=== PATIENT | female | born 1990 | race Caucasian/White ===

== ENCOUNTER 2018-05-12 18:03 | Inpatient (IN) | payer OTHER ==
[~2018-05-12] VITALS: Ht 167.6 cm; Wt 60.9 kg
--- NOTE | ~2018-05-12 | EKG ---
[place], [place] ELECTROCARDIOGRAM REPORT NAME: REAL WILCOX UNIT #: [id number] ROOM: 428 DOCTOR: VINCENT DRAFT REPORT BIRTHDATE: [birth year] [facility] Test Date: 2018-05-12 Test Time: 21:17:09 Pat Name: REAL WILCOX Department: Room: [facility] 1 Gender: F Appraiser Auditor: Brandi Su : 1990 Requested By: SUYAPA CORONA Order Number: [id number] Reading MD: Karan Cunningham MD Measurements Intervals Rogers Rate: 92 P: 62 NH: 117 QRS: 76 QRSD: 90 T: 45 QT: 367 QTc: 455 Interpretive Statements Sinus rhythm Borderline short NH interval Baseline wander in lead(s) V6 Compared to ECG 04/08/2018 19:09:59 No significant changes Electronically Signed On 05-13-2018 15:34:25 PDT by Karan Cunningham MD CM:EKGRPT:ELECTROCARDIOGRAM REPORT [id number] SUYAPA BAH DRAFT REPORT SUYAPA CORONA DO
[~2018-05-12 18:03] MED LIST: 'CLONIDINE0.1 MG PO; BACLOFEN5 MG PO; CITALOPRAM10 MG PO; HYDROXYZINE PAM25 M1 PO; MIRTAZAPINE15 M2 PO
[2018-05-12 18:05] VITALS: BP 135/70
[2018-05-12 18:37] LABS: BASO % 0.4 % (0.0-1.0); EOS # 0.1 10*3/uL (0.0-0.4); EOS % 1.9 % (1.0-4.0); HEMATOCRIT 37.6 % (37.0-47.0); HEMOGLOBIN 12.9 g/dl (12.0-16.0); LYMPH # 2.3 10*3/uL (1.3-4.4); LYMPH % 44.2 % (27.0-41.0); MEAN CORPUSCULAR HGB 29.9 pg (27.0-31.0); MEAN CORPUSCULAR HGB CONC 34.3 g/dl (33.0-37.0); MEAN PLATELET VOLUME 10.8 fl (9.6-12.3); MONO # 0.6 10*3/uL (0.1-1.0); MONO % 10.8 % (3.0-9.0); NEUT # 2.3 10*3/uL (2.3-7.9); NEUT % 42.5 % (47.0-73.0); PLATELET COUNT AUTOMATED 172 10*3/uL (130-400); RED BLOOD COUNT 4.32 10*6/uL (4.10-5.10); RED CELL DISTRI WIDTH 13.3 % (0-14.5); WHITE BLOOD COUNT 5.3 10*3/uL (4.8-10.8)
[2018-05-12 18:48] LABS: BILIRUBIN NEGATIVE (NEGATIVE); BLOOD NEGATIVE (NEGATIVE); CLARITY CLOUDY (CLEAR); COLOR YELLOW (YELLOW); GLUCOSE NEGATIVE (NEGATIVE); KETONE NEGATIVE (NEGATIVE); LEUKO ESTERASE NEGATIVE (NEGATIVE); NITRITE NEGATIVE (NEGATIVE); SPECIFIC GRAVITY 1.015 (1.005-1.030); UROBILINOGEN 0.2 E.U./dl (0.2-1.0)
[2018-05-12 18:55] LABS: BACTERIA 3+; EPITHELIAL CELLS 0-2; RBC 0-2 rbc/hpf (0-2)
[2018-05-12 18:56] LABS: URINE AMPHETAMINES > 1000 (1000ng/ml); URINE BARBITURATES < 200 (200ng/ml); URINE BENZODIAZEPINES < 200 (200ng/ml); URINE CANNABINOIDS (THC) > 50 (50ng/ml); URINE COCAINE > 300 (300ng/ml); URINE METHADONE < 300 (300ng/ml); URINE OPIATES > 300 (300ng/ml)
[2018-05-12 19:08] LABS: ALBUMIN 3.9 gm/dl (3.1-4.5); ALKALINE PHOSPHATASE 57 U/L (45-117); BUN 5 mg/dl (7-24); CHLORIDE 107 mmol/L (98-107); CREATININE 0.73 mg/dL (0.55-1.02); POTASSIUM 3.7 mmol/L (3.5-5.1); SGOT/AST 56 IU/L (3-35); SGPT/ALT 76 U/L (12-78); SODIUM 140 mmol/L (136-145)
--- NOTE | 2018-05-12 19:09 | NUR ---
REPORT GIVEN TO PAUL LOMAX.
[2018-05-12 19:10] LABS: URINE PHENCYCLIDINE < 25 (25ng/ml)
[2018-05-12 19:15] LABS: ACETAMINOPHEN (TYLENOL) < 5.0 ug/ml (10-30); BETA-HCG, QUANT < 1.0 mIU/mL (1-3); ETHYL ALCOHOL < 3.0 mg/dl (<3)
[2018-05-12 19:55] VITALS: BP 121/66
--- NOTE | 2018-05-12 19:55 | NUR ---
Time: 1952 A 28 year old FEMALE admitted to under services of BALTAZAR QUINN DO, Pt. arrived via wheel chair from ER. Chief complaint: PATIENT HERE FOR [facility]. GARY REYNOLDS
[2018-05-12 20:00] VITALS: BP 121/66
--- NOTE | 2018-05-12 20:30 | NUR ---
MED LIST REVIEWED WITH PATIENT.
[2018-05-13] VITALS: BP 130/81
--- NOTE | 2018-05-13 03:35 | NUR ---
PATIENT MEDICATED WITH ROBAXIN AND VISTARIL PER PRN ORDER AND PATIENT REQUEST FOR S/S OF WITHDRAWAL. SEE EMAR. REINFORCED USE OF CALL LIGHT.
--- NOTE | 2018-05-13 03:45 | NUR ---
NOTIFIED OF CRITICAL LAB RESULT-- ANAEROBIC BLOOD CULTURE GRAM POSITIVE IN PRS AND CHAINS.
[2018-05-13 08:00] VITALS: BP 130/82
--- NOTE | 2018-05-13 09:29 | NUR ---
PATIENT MEETS [facility]. PATIENT WANTS TO GO TO [facility] IN [place] FOR HER AFTERCARE PLAN. [place] STAFF WILL FOLLOW UP WITH PATIENT. SAVANNA GAFFNEY B.A. SOAP PRESS FEEDER
--- NOTE | 2018-05-13 11:51 | NUR ---
REFUSES TO TAKE NOON DOSE OF SUBUTEX. REMINDED THAT NEXT DOSE OF SUBUTEX WILL BE GIVEN AT 8PM. MEDICATED WITH VISTARIL ORDERED PRN FOR ANXIETY.
[2018-05-13 12:00] VITALS: BP 124/74
--- NOTE | 2018-05-13 13:28 | NUR ---
PATIENT'S AFTERCARE PLAN HAS CHANGED. PATIENT WILL BE FOLLOWING UP WITH [facility] IN [place] FOR INTENSIVE OUT PATIENT TREATMENT AND THEN WILL BE ALSO FOLLOWING UP WITH [facility] IN [place] FOR THE VIVITROL SHOT. [place] STAFF REVIEWED ALL OF PATIENT'S APPOINTMENT DATES AND TIMES. PATIENT AGREES AND UNDERSTANDS HER AFTERCARE PLAN. PATIENT WILL NEED TO CONTACT HER INSURANCE FOR TRANSPORTATION UPON DISCHARGE. [facility] PHONE NUMBER IS [phone]. HOSPITAL STAFF WILL BE ABLE TO VERIFY THAT PATIENT IS BEING DISCHARGE FROM HOSPITAL AND NEEDS TRANSPORTATION HOME. SAVANNA GAFFNEY B.A. ARSON INVESTIGATOR
[2018-05-13 16:00] VITALS: BP 122/71
[2018-05-13 20:00] VITALS: BP 106/73
[2018-05-14] VITALS: BP 139/82
--- NOTE | 2018-05-14 07:05 | NUR ---
REPORT OBTAINED FROM SHYANNE. PATIENT IS RESTING COMFORTABLY IN BED, EYES CLOSED. NO DISTRESS NOTED, RESP ARE ERND ON ROOM AIR. BED IS LOCKED IN LOWEST POSITION. CALL LIGHT LEFT WITHIN REACH.
[2018-05-14 08:00] VITALS: BP 136/79
--- NOTE | 2018-05-14 10:03 | NUR ---
PATIENT MEDICATED WITH PRN AVAILBLE, SEE EMAR, FOR C/O SYMPTOMS OF WITHDRAWAL. WILL MONITOR
--- NOTE | 2018-05-14 11:03 | NUR ---
PRNS APPEAR TO BE EFFECTIVE FOR WITHDRAWAL SYMPTOMS. PATIENT IN BED, EYES CLOSED. NO DISTRESS NOTED
[2018-05-14 16:00] VITALS: BP 132/75
[2018-05-14 20:00] VITALS: BP 137/69
--- NOTE | 2018-05-14 21:30 | NUR ---
PT GIVEN VISTARIL FOR C/O ANXIETY. WILL MONITOR FOR EFFECTIVENESS. CALL LIGHT IN REACH.
--- NOTE | 2018-05-14 22:30 | NUR ---
VISTARIL EFFECTIVE PER PT.
[2018-05-15] VITALS: BP 129/82
--- NOTE | 2018-05-15 00:50 | NUR ---
PT CAUGHT SMOKING OUTSIDE BY NRSN CLEAT BLANKER VINNIE. NOTIFIED. SAID TO WITHOLD ALL MEDICATIONS FROM PT THROUGH THE NIGHT AND WILL BE DISCHARGED IN THE MORNING.
[2018-05-15 08:00] VITALS: BP 119/73
--- NOTE | 2018-05-15 11:28 | NUR ---
Discharge instructions reviewed with patient/family. Patient receptive and verbalizes understanding. Follow-up care TO BE arranged BY PATIENT. Written instructions given to patient. TRANSPORT SET-UP BY PATIENT. SANDHYA RODRIGEZ
== END 2018-05-15 11:28 | disposition home or self-care (01) | DRG 897 ==
LOC: ED 18:03 → 4E 18:54 → EDHOLD 18:54 → 4E 19:47
PROVIDERS: Nurse Practitioner Family; ADMIT Internal Medicine
DX: F11.23 Opioid dependence with withdrawal (principal); B15.9 Hepatitis A without hepatic coma; R61 Generalized hyperhidrosis; F41.9 Anxiety disorder, unspecified; R00.0 Tachycardia, unspecified; R74.0 Nonspecific elevation of levels of transaminase and lactic acid dehydrogenase [LDH]; F14.10 Cocaine abuse, uncomplicated; F15.10 Other stimulant abuse, uncomplicated; F12.10 Cannabis abuse, uncomplicated; B19.20 Unspecified viral hepatitis C without hepatic coma; F17.200 Nicotine dependence, unspecified, uncomplicated; K76.0 Fatty (change of) liver, not elsewhere classified; Z71.6 Tobacco abuse counseling; Z79.899 Other long term (current) drug therapy

== ENCOUNTER 2018-10-05 15:52 | Inpatient (IN) | payer OTHER ==
[~2018-10-05] VITALS: Ht 167.6 cm; Wt 63.5 kg
[2018-10-05 15:54] VITALS: BP 110/71
--- NOTE | 2018-10-05 16:47 | NUR ---
PATIENT MEETS [facility]. PATIENT WANTS TO FOLLOW UP WITH A [facility] IN [place]. PATIENT REFUSED TO SIGN RELEASE OF INFORMATION TO FACILITY. [place] STAFF WILL FOLLOW UP WITH PATIENT. SAVANNA GAFFNEY B.A. RIGHT OF WAY MAN
[2018-10-05 16:50] VITALS: BP 109/74
--- NOTE | 2018-10-05 16:54 | NUR ---
[place] 28 year old FEMALE admitted to room # 427 for stabilization. Reports an addiction to IV HEROIN last used 14 hours prior to admission. Compliant with admission procedure. Patient denies any anxiety, but is unable to sit still, taps toes to floor continuously, looks about room, unable to focus eyes on nurse during interview. See assessment forms for additional information about patient status.
[2018-10-05] MEDS ORDERED: REMERON SOLTAB45 MG PO (17:06)
[2018-10-05 17:16] LABS: BILIRUBIN NEGATIVE (NEGATIVE); BLOOD NEGATIVE (NEGATIVE); CLARITY SL CLOUDY (CLEAR); COLOR YELLOW (YELLOW); GLUCOSE NEGATIVE (NEGATIVE); KETONE TRACE (NEGATIVE); LEUKO ESTERASE NEGATIVE (NEGATIVE); NITRITE NEGATIVE (NEGATIVE); SPECIFIC GRAVITY 1.025 (1.005-1.030); UROBILINOGEN 0.2 E.U./dl (0.2-1.0)
[2018-10-05 17:28] LABS: BACTERIA 3+; MUCOUS TRACE; RBC 0-2 rbc/hpf (0-2)
[2018-10-05 17:29] LABS: BASO % 0.3 % (0.0-1.0); EOS # 0.1 10*3/uL (0.0-0.4); EOS % 1.9 % (1.0-4.0); HEMATOCRIT 35.9 % (37.0-47.0); HEMOGLOBIN 11.9 g/dl (12.0-16.0); LYMPH # 2.1 10*3/uL (1.3-4.4); LYMPH % 36.4 % (27.0-41.0); MEAN CELL VOLUME 91.1 fl (81.0-99.0); MEAN CORPUSCULAR HGB 30.2 pg (27.0-31.0); MEAN CORPUSCULAR HGB CONC 33.1 g/dl (33.0-37.0); MEAN PLATELET VOLUME 10.9 fl (9.6-12.3); MONO # 0.5 10*3/uL (0.1-1.0); MONO % 8.9 % (3.0-9.0); NEUT % 52.3 % (47.0-73.0); PLATELET COUNT AUTOMATED 172 10*3/uL (130-400); RED BLOOD COUNT 3.94 10*6/uL (4.10-5.10); RED CELL DISTRI WIDTH 12.8 % (0-14.5); WHITE BLOOD COUNT 5.7 10*3/uL (4.8-10.8)
[2018-10-05 17:32] LABS: URINE AMPHETAMINES < 1000 (1000ng/ml); URINE BARBITURATES < 200 (200ng/ml); URINE BENZODIAZEPINES < 200 (200ng/ml); URINE CANNABINOIDS (THC) < 50 (50ng/ml); URINE COCAINE < 300 (300ng/ml); URINE METHADONE < 300 (300ng/ml); URINE OPIATES < 300 (300ng/ml); URINE PHENCYCLIDINE < 25 (25ng/ml)
[2018-10-05 17:36] LABS: INTERNATIONAL NORM RATIO 1.1 (2.0-3.5)
[2018-10-05 17:43] LABS: ALBUMIN 3.9 gm/dl (3.1-4.5); ALKALINE PHOSPHATASE 39 U/L (45-117); BUN 7 mg/dl (7-24); CHLORIDE 105 mmol/L (98-107); ETHYL ALCOHOL < 3.0 mg/dl (<3); POTASSIUM 3.6 mmol/L (3.5-5.1); SGOT/AST 26 IU/L (3-35); SGPT/ALT 35 U/L (12-78); SODIUM 137 mmol/L (136-145); TOTAL PROTEIN 7.6 gm/dL (6.4-8.2)
[2018-10-05 17:48] LABS: BETA-HCG, QUANT < 1.0 mIU/mL (1-3)
--- NOTE | 2018-10-05 18:00 | NUR ---
PATIENT REFUSED 1800 SUBUTEX DOSE. PT HERE BEFORE FOR [facility] PROGRAM AND DID NOT TAKE ANY SUBUTEX. PT ONLY REQUESTS PRN MEDICATIONS. PRN BENTYL, ROBAXIN, REQUIP, MOTRIN AND VISTARIL GIVEN AT THIS TIME. WILL MONITOR EFFECTIVENESS.
--- NOTE | 2018-10-05 19:24 | NUR ---
REPORT RECIEVED FROM DAMI NOBLE. PT IS AWAKE AND SITTING UP IN BED AT THIS TIME. THERE ARE NO OVERT SIGNS OF DISTRESS. PT DENIES ANY WITHDRAWAL SYMPTOMS. CALL LIGHT IS WITHIN REACH, WILL CONTINUE TO MONITOR.
--- NOTE | 2018-10-05 19:24 | NUR ---
24 HOUR CHART CHECK COMPLETED
[2018-10-05 20:00] VITALS: BP 99/52
[2018-10-06] VITALS: BP 100/53
[2018-10-06 04:00] VITALS: BP 93/49
[2018-10-06 08:00] VITALS: BP 99/55
--- NOTE | 2018-10-06 10:32 | NUR ---
IN TO SEE PT, ASSESSMENT COMPLETE. NO NEW ABNORMALITIES NOTED. PT DENIES NEEDING ANYTHING. PT SLEEPING AT THIS TIME. WILL CONTINUE TO MONITOR. CALL LIGHT IN REACH.
[2018-10-06 12:00] VITALS: BP 110/56
--- NOTE | 2018-10-06 12:23 | NUR ---
PT GIVEN ROBAXIN AND REQUIP FOR C/O RESTLESS LEGS AND BODY ACHES. WILL MONITOR FOR EFFECTIVENESS. NO OTHER COMPLAINTS AT THIS TIME. PT ALERT ORIENTED AND PLEASANT MOOD. PT SITTING UP IN BED, CALL LIGHT IN REACH.
--- NOTE | 2018-10-06 13:00 | NUR ---
PATIENT IS GOING TO CONTINUE TO FOLLOW UP WITH A [facility] IN [place]. PATIENT REPORTS THAT HER AFTERCARE IS ALREADY SET UP UPON DISCHARGE. PATIENT WILL POSSIBLY NEED TRANSPORTATION SET UP THROUGH HER INSURANCE. SAVANNA GAFFNEY B.A. COVERED BUTTON MAKER
[2018-10-06 16:00] VITALS: BP 144/43
--- NOTE | 2018-10-06 19:44 | NUR ---
24 HOUR CHART CHECK COMPLETED AT THIS TIME
[2018-10-06 20:00] VITALS: BP 104/67
[2018-10-07] VITALS: BP 111/58
[2018-10-07 08:00] VITALS: BP 95/55
[2018-10-07 12:00] VITALS: BP 99/59
--- NOTE | 2018-10-07 12:45 | NUR ---
PT LYING IN BED, RESPIRATIONS EASY AND UNLABORED. NO S/S OF DISTRESS. PT DENIES NEEDING ANYTHING AT THIS TIME. WILL CONTINUE TO MONITOR. CALL LIGHT IN REACH.
[2018-10-07 16:00] VITALS: BP 99/59
--- NOTE | 2018-10-07 16:00 | NUR ---
PT LYING IN BED, RESPIRATIONS EASY AND UNLABORED. NO S/S OF DISTRESS NOTED. PT DENIES ANY WITHDRAWAL S/S AND DENIES NEEDING ANYTHING AT THIS TIME. WILL CONTINUE TO MONITOR. CALL LIGHT IN REACH.
[2018-10-07 20:00] VITALS: BP 101/71
[2018-10-08] VITALS: BP 116/68
--- NOTE | 2018-10-08 07:43 | NUR ---
TOOK OVER CARE OF PT AT THIS TIME. PT RESTING IN BED WITH EYES CLOSED, RESPIRATIONS EASY AND UNLABORED ON ROOM AIR. NO S/S OF DISTRESS. BED IN LOWEST POSITION, WHEELS LOCKED. WHITE BOARD UPDATED. CALL LIGHT IN REACH.
[2018-10-08 08:00] VITALS: BP 106/67
--- NOTE | 2018-10-08 09:00 | NUR ---
PT REFUSES AM SUBUTEX AND LOVENOX. PT STATES THAT SHE HAS SCHEDULED HER TRANSPORTATION VIA HER INSURANCE TO PICK HER UP AT 10 AM. PHYSICIAN NOTIFIED.
--- NOTE | 2018-10-08 09:49 | NUR ---
HOME MEDICATION FROM PHARMACY RETURNED TO PATIENT. CIGARETTES AND LIBRARIAN HELPER FROM [place] RETURNED TO PATIENT WELL. ALL OTHER BELONGINGS WITH PATIENT, PT STATES THAT SHE DOES HAVE EVERYTHING THAT SHE CAME IN WITH. ALL APPROPRIATE PAPERWORK SIGNED. PATIENT STATES THAT HER TRANSPORTATION IS HERE THAT SHE ARRANGED WITH HER INSURANCE COMPANY. PT STABLE, WALKS OFF OF FLOOR AT THIS TIME.
--- NOTE | 2018-10-08 09:51 | NUR ---
Discharge instructions reviewed with patient/family. Patient receptive and verbalizes understanding. Follow-up care arranged. Written instructions given to patient/family. CYNTHIA BAUTISTA
== END 2018-10-08 10:27 | disposition home or self-care (01) | DRG 897 ==
LOC: ED 15:52 → EDHOLD 16:18 → 4E 16:18
PROVIDERS: Internal Medicine; ADMIT Internal Medicine
DX: F11.23 Opioid dependence with withdrawal (principal); B19.20 Unspecified viral hepatitis C without hepatic coma; F41.9 Anxiety disorder, unspecified; F17.210 Nicotine dependence, cigarettes, uncomplicated; D64.9 Anemia, unspecified; G47.00 Insomnia, unspecified; Z71.6 Tobacco abuse counseling; Z82.49 Family history of ischemic heart disease and other diseases of the circulatory system

== ENCOUNTER 2018-12-08 15:25 | Inpatient (IN) | payer OTHER ==
[~2018-12-08] VITALS: Ht 167.6 cm; Wt 67.6 kg
[~2018-12-08 15:25] MED LIST changes: +REMERON SOLTAB45 MG PO
[2018-12-08 15:26] VITALS: BP 113/70
[2018-12-08 16:17] LABS: BASO % 0.6 % (0.0-1.0); EOS # 0.1 10*3/uL (0.0-0.4); EOS % 2.4 % (1.0-4.0); HEMATOCRIT 34.8 % (37.0-47.0); HEMOGLOBIN 11.3 g/dl (12.0-16.0); LYMPH # 2.1 10*3/uL (1.3-4.4); LYMPH % 38.3 % (27.0-41.0); MEAN CELL VOLUME 90.9 fl (81.0-99.0); MEAN CORPUSCULAR HGB 29.5 pg (27.0-31.0); MEAN CORPUSCULAR HGB CONC 32.5 g/dl (33.0-37.0); MEAN PLATELET VOLUME 10.8 fl (9.6-12.3); MONO # 0.6 10*3/uL (0.1-1.0); MONO % 10.5 % (3.0-9.0); NEUT # 2.6 10*3/uL (2.3-7.9); PLATELET COUNT AUTOMATED 162 10*3/uL (130-400); RED BLOOD COUNT 3.83 10*6/uL (4.10-5.10); RED CELL DISTRI WIDTH 12.5 % (0-14.5); WHITE BLOOD COUNT 5.4 10*3/uL (4.8-10.8)
[2018-12-08 16:43] LABS: ALBUMIN 3.2 gm/dl (3.1-4.5); ALKALINE PHOSPHATASE 36 U/L (45-117); BUN 5 mg/dl (7-24); CHLORIDE 106 mmol/L (98-107); CREATININE 0.66 mg/dL (0.55-1.02); POTASSIUM 4.2 mmol/L (3.5-5.1); SGOT/AST 26 IU/L (3-35); SGPT/ALT 31 U/L (12-78); SODIUM 139 mmol/L (136-145); TOTAL PROTEIN 6.5 gm/dL (6.4-8.2)
[2018-12-08 16:53] LABS: ACETAMINOPHEN (TYLENOL) < 5.0 ug/ml (10-30); BETA-HCG, QUANT < 1.0 mIU/mL (1-3); ETHYL ALCOHOL < 3.0 mg/dl (<3)
--- NOTE | 2018-12-08 17:25 | NUR ---
28 year old FEMALE admitted to room # 416-2 for stabilization. Reports an addiction to HEROIN last used 16 hours prior to admission. Compliant with admission procedure. Patient C/O ANXIETY, AND CHILLS. See assessment forms for additional information about patient status. SKIN INTACT WITH NO WOUNDS
[2018-12-08 17:35] VITALS: BP 99/68
--- NOTE | 2018-12-08 17:41 | NUR ---
PT DECLINES FLU SHOT
[2018-12-08 17:45] LABS: BILIRUBIN NEGATIVE (NEGATIVE); BLOOD NEGATIVE (NEGATIVE); COLOR YELLOW (YELLOW); GLUCOSE NEGATIVE (NEGATIVE); KETONE NEGATIVE (NEGATIVE); LEUKO ESTERASE NEGATIVE (NEGATIVE); NITRITE NEGATIVE (NEGATIVE); SPECIFIC GRAVITY 1.015 (1.005-1.030); UROBILINOGEN 0.2 E.U./dl (0.2-1.0)
[2018-12-08 17:53] LABS: URINE AMPHETAMINES < 1000 (1000ng/ml); URINE BARBITURATES < 200 (200ng/ml); URINE BENZODIAZEPINES < 200 (200ng/ml); URINE CANNABINOIDS (THC) < 50 (50ng/ml); URINE COCAINE < 300 (300ng/ml); URINE METHADONE < 300 (300ng/ml); URINE OPIATES < 300 (300ng/ml)
[2018-12-08 17:56] LABS: URINE PHENCYCLIDINE < 25 (25ng/ml)
--- NOTE | 2018-12-08 18:00 | NUR ---
PT STATES SHE DOES NOT WANT TO TAKE SUBUTEX DURING THIS ADMISSION. DR DUBON NOTIFIED
[2018-12-08 18:07] LABS: CLARITY SL CLOUDY (CLEAR); EPITHELIAL CELLS 16-20
[2018-12-08 20:00] VITALS: BP 112/69
--- NOTE | 2018-12-08 20:12 | NUR ---
PT REQUESTING MOTRIN. PT STATES "I HAD MY TOOTH PULLED YESTERDAY AND WOULD LIKE SOME MOTRIN." PRN MOTRIN GIVEN ORDERED. CALL LIGHT WITHIN REACH.
--- NOTE | 2018-12-08 20:56 | NUR ---
PT STATES SHE DOES NOT WANT TO TAKE SUBUTEX. INFORMED.
--- NOTE | 2018-12-08 21:15 | NUR ---
PT STATES MOTRIN WAS EFFECTIVE. NO COMPLAINTS AT THIS TIME. CALL LIGHT WITHIN REACH.
[2018-12-09] VITALS: BP 112/59
--- NOTE | 2018-12-09 04:10 | NUR ---
Patient sleeping. Respirations relaxed and easy. Siderails up . [place] on. No signs of distress noted. Call light within reach. AARTI CARLISLE
--- NOTE | 2018-12-09 07:30 | NUR ---
PT SLEEPING. REPOERT RECEIVED FROM AARTI LOMAX. BED LOW. CALL JHA IN REACH
[2018-12-09 08:00] VITALS: BP 100/52
--- NOTE | 2018-12-09 09:06 | NUR ---
PATIENT MEETS [facility]. PATIENT IS GOING TO FOLLOW UP WITH [facility] FOR HER AFTERCARE PLAN. SAVANNA GAFFNEY B.A. FRONT MAN
--- NOTE | 2018-12-09 15:31 | NUR ---
PATIENT IS GOING TO A [facility] FAC[facility] FOR HER AFTERCARE PLAN. PATIENT REPORTS THAT SHE HAS TRANSPORTATION SET UP. SAVANNA GAFFNEY B.A. PRODUCTION SUPPORT CONSULTANT
--- NOTE | 2018-12-09 18:20 | NUR ---
PT LEFT AMA. DID NOT NOTIFY STAFF. Physician DR DUBON and quality assurance supervisor chassis JOSE HIDALGO notified. PARVIN NELSON
== END 2018-12-09 18:20 | disposition left against medical advice (07) | DRG 770 ==
LOC: ED 15:25 → EDHOLD 16:05 → 4E 16:05
PROVIDERS: Nurse Practitioner Family; ADMIT Family Medicine
DX: F11.23 Opioid dependence with withdrawal (principal); K76.0 Fatty (change of) liver, not elsewhere classified; B19.20 Unspecified viral hepatitis C without hepatic coma; Z53.29 Procedure and treatment not carried out because of patient's decision for other reasons; F17.210 Nicotine dependence, cigarettes, uncomplicated; F41.9 Anxiety disorder, unspecified; F51.01 Primary insomnia; D64.9 Anemia, unspecified; Z71.6 Tobacco abuse counseling; Z82.49 Family history of ischemic heart disease and other diseases of the circulatory system

== ENCOUNTER 2019-06-12 14:33 | Inpatient (IN) | payer OTHER ==
[~2019-06-12] VITALS: Ht 167.6 cm; Wt 64.0 kg
[2019-06-12 14:41] VITALS: BP 99/60
[2019-06-12 15:02] LABS: BASO % 0.4 % (0.0-1.0); EOS % 0.9 % (1.0-4.0); HEMATOCRIT 39.1 % (37.0-47.0); LYMPH # 1.9 10*3/uL (1.3-4.4); LYMPH % 40.5 % (27.0-41.0); MEAN CELL VOLUME 86.1 fl (81.0-99.0); MEAN CORPUSCULAR HGB 29.5 pg (27.0-31.0); MEAN CORPUSCULAR HGB CONC 34.3 g/dl (33.0-37.0); MEAN PLATELET VOLUME 11.1 fl (9.6-12.3); MONO # 0.4 10*3/uL (0.1-1.0); MONO % 8.1 % (3.0-9.0); NEUT # 2.3 10*3/uL (2.3-7.9); NEUT % 49.9 % (47.0-73.0); PLATELET COUNT AUTOMATED 253 10*3/uL (130-400); RED BLOOD COUNT 4.54 10*6/uL (4.10-5.10); RED CELL DISTRI WIDTH 13.5 % (0-14.5); WHITE BLOOD COUNT 4.6 10*3/uL (4.8-10.8)
[2019-06-12 15:23] LABS: ACETAMINOPHEN (TYLENOL) < 5.0 ug/ml (10-30); ALBUMIN 4.1 gm/dl (3.1-4.5); ALKALINE PHOSPHATASE 41 U/L (45-117); BUN 9 mg/dl (7-24); CHLORIDE 110 mmol/L (98-107); CREATININE 0.86 mg/dL (0.55-1.02); ETHYL ALCOHOL < 3.0 mg/dl (<3); POTASSIUM 4.3 mmol/L (3.5-5.1); SGOT/AST 17 IU/L (3-35); SGPT/ALT 41 U/L (12-78); SODIUM 144 mmol/L (136-145); TOTAL PROTEIN 8.2 gm/dL (6.4-8.2)
[2019-06-12 15:26] LABS: BACTERIA 3+; BILIRUBIN NEGATIVE (NEGATIVE); BLOOD NEGATIVE (NEGATIVE); CLARITY SL CLOUDY (CLEAR); COLOR YELLOW (YELLOW); GLUCOSE NEGATIVE (NEGATIVE); KETONE NEGATIVE (NEGATIVE); LEUKO ESTERASE NEGATIVE (NEGATIVE); MUCOUS 2+; NITRITE NEGATIVE (NEGATIVE); UROBILINOGEN 0.2 E.U./dl (0.2-1.0)
[2019-06-12 15:27] LABS: BETA-HCG, QUANT < 1.0 mIU/mL (1-3)
[2019-06-12 15:30] LABS: URINE AMPHETAMINES < 1000 (1000ng/ml); URINE BARBITURATES < 200 (200ng/ml); URINE BENZODIAZEPINES < 200 (200ng/ml); URINE CANNABINOIDS (THC) < 50 (50ng/ml); URINE COCAINE < 300 (300ng/ml); URINE METHADONE < 300 (300ng/ml); URINE OPIATES < 300 (300ng/ml)
[2019-06-12 15:35] LABS: URINE PHENCYCLIDINE < 25 (25ng/ml)
[2019-06-12 16:00] VITALS: BP 106/65
[2019-06-12 20:00] VITALS: BP 110/66
[2019-06-13] VITALS: BP 118/58
[2019-06-13 08:00] VITALS: BP 90/54
[2019-06-13 12:00] VITALS: BP 107/56
[2019-06-13 16:00] VITALS: BP 110/54
[2019-06-13 20:00] VITALS: BP 102/60
[2019-06-14] VITALS: BP 109/64
[2019-06-14 08:00] VITALS: BP 108/58
== END 2019-06-14 10:51 | disposition home or self-care (01) | DRG 773 ==
LOC: ED 14:33 → 4E 15:09 → EDHOLD 15:09 → 4E 15:32
PROVIDERS: Nurse Practitioner Family; ADMIT Internal Medicine
DX: F11.23 Opioid dependence with withdrawal (principal); F41.9 Anxiety disorder, unspecified; E87.8 Other disorders of electrolyte and fluid balance, not elsewhere classified; F17.210 Nicotine dependence, cigarettes, uncomplicated; Z82.49 Family history of ischemic heart disease and other diseases of the circulatory system; Z79.899 Other long term (current) drug therapy